=== PATIENT | male | born 1990 | race Caucasian/White ===

== ENCOUNTER → 2018-07-07 06:51 | Outpatient (CLI) | payer OTHER, SELFPAY ==
--- NOTE | 2018-07-07 | DI.MRI.S_ITS ---
PROCEDURE: MR ANKLE LT WO/W CON INDICATIONS: PAIN IN LEFT FOOT AND ANKLE TECHNIQUE: Noncontrast sagittal T1 spin echo and T2 fast spin echo with fat saturation, axial proton density fast spin echo and T2 fast spin echo with fat saturation, axial T1 spin echo with fat saturation, coronal T1 spin echo and T2 fast spin echo with fat saturation through the ankle/hindfoot. Post-contrast axial, coronal, and sagittal T1 spin echo with fat saturation through the ankle/hindfoot. COMPARISON: [facility], , MR FOOT LT WO/W CON, 07/07/2018, 8:11. FINDINGS: Image quality: Diagnostic. Bones and joints: No acute fracture, dislocation, or suspicious osseous lesion is identified involving the osseous structures of the midfoot or hindfoot. No no suspicious osseous enhancement is identified. Ankle mortise is well-maintained. There is small focal area of marrow edema with articular surface offset evident along the medial corner of the talar dome with associated reactive marrow edema, suggesting a small osteochondral defect that measures approximately 6 mm AP by 4 mm transverse (image 8, series 6 and image 22, series 7). No osteochondral fragments are displaced. There is no significant joint effusion. Medial structures: The deltoid and spring ligaments appear to be intact. The tibialis posterior, flexor digitorum longus, and flexor hallucis longus tendons are intact. There is a small amount of fluid contained within the tibialis posterior tendon sheath. The posterior tibial nerve through the region of the tarsal tunnel appears to be within normal limits. Lateral structures: The anterior and posterior distal tibiofibular ligaments are intact. The anterior posterior talofibular ligaments are intact. The calcaneofibular ligament is intact. There is flattening of the peroneus brevis tendon with slight increased signal identified along the posterior margin of the lateral malleolus without significant tearing. Moderate thickening and diffuse increased signal involving the peroneus longus tendon along the posterior margin of the lateral malleolus is also evident without significant tearing. Incidental note is made of a very small peroneus quartus muscle and tendon, which is intact and otherwise unremarkable, and anatomic variant. Normal fatty signal is seen within the sinus tarsi. Anterior structures: The tibialis anterior, extensor hallucis longus, and extensor digitorum longus tendons appear intact. However, there is a simple appearing cyst with a single septation identified along the anterolateral margin of the mid foot region, which demonstrates fluid signal on all imaging sequences, which measures approximately 2.0 x 4.1 x 1.5 cm (image 18, series 6 and image 32, series 4). Postcontrast images demonstrate minimal peripheral enhancement. No suspicious imaging characteristics are evident. The stricture is associated with the 4th or 5th extensor tendons. Posterior and plantar structures: Achilles tendon is intact. Medial and lateral bands of the plantar fascia are of normal thickness. IMPRESSION: 1. Large ganglion cyst along the 4th and 5th extensor digitorum longus tendon sheaths probably is related to a small perforation of one of these corresponding tendon sheaths. 2. No soft tissue or bony masses or abnormal enhancement. 3. Small developing osteochondral defect along the medial talar dome. No displaced fragments. 4. Moderate peroneus longus tendinopathy without significant tearing. There is mild peroneus brevis tendinopathy. 5. Mild tibialis posterior tenosynovitis. Dictated by: Heath Rodgers M.D. on 07/07/2018 at 13:34 Approved by: Heath Rodgers M.D. on 07/07/2018 at 14:18
--- NOTE | 2018-07-07 | DI.MRI.S_ITS ---
PROCEDURE: MR FOOT LT WO/W CON INDICATIONS: PAIN IN LEFT FOOT AND ANKLE TECHNIQUE: Noncontrast sagittal T1 spin echo and T2 fast spin echo with fat saturation, long-axis T1 spin echo and T2 fast spin echo with fat saturation; short-axis T1 spin echo, proton density fast spin echo, and T2 fast spin echo with fat saturation through the forefoot. Post-contrast short axis, long axis, and sagittal T1 spin echo with fat saturation through the forefoot. COMPARISON: [facility], MR, MR ANKLE LT WO/W CON, 07/07/2018, 7:39. FINDINGS: Image quality: Diagnostic. Bones and joints: No suspicious osseous enhancement. No bone marrow contusions or metatarsal stress fractures. The sesamoid bones appear in expected positions, without internal edema. No metatarsophalangeal joint degeneration. No intraosseous lesions. Soft tissues: On the dorsal-lateral margin of the midfoot, there is a simple appearing cystic structure with a single thin septation and demonstrates minimal postcontrast peripheral enhancement and no nodularity to the surface of this structure is evident. The structure demonstrates fluid signal on all imaging sequences and is noted to abut the 4th and 5th extensor digitorum longus tendon sheaths. No definite fluid is contained within the tendon sheaths, however. No definite additional soft tissue lesions are evident. Areas of mild subcutaneous edema along the forefoot region is present. No solid soft tissue masses or enhancing masses are evident. No bursal fluid collections are evident. The flexor and extensor tendons of the midfoot and forefoot appear to be within normal limits. The Lisfranc ligament is intact. IMPRESSION: Large ganglion cyst along the superficial margin of the 4th and 5th extensor digitorum longus tendon sheaths correlates with the patient's palpable abnormality and probably is related to a small nonvisualized perforation of one of these tendon sheaths. The underlying tendons are otherwise unremarkable. Dictated by: Heath Rodgers M.D. on 07/07/2018 at 16:22 Approved by: Heath Rodgers M.D. on 07/07/2018 at 16:26
== END ==
PROVIDERS: Visit Provider Orthopaedic Surgery
DX: M25.572 Pain in left ankle and joints of left foot (principal); M67.472 Ganglion, left ankle and foot; M65.872 Other synovitis and tenosynovitis, left ankle and foot
CPT/HCPCS: 73720; 73723; A9579